=== PATIENT | female | born 1980 | race African-American/Black ===

== ENCOUNTER 2016-04-09 14:25 | Emergency (ER) | payer SELFPAY ==
[2016-04-09] MEDS ORDERED: Lidocaine Viscous Sol 2% 15 ml UD Cup ONE (15:05)
[2016-04-09] MEDS ORDERED: Mag-Al Plus 1200 MG/1200 MG/120 MG/30 ML UDCUP ONE (15:05)
[2016-04-09 15:17] LABS: Bilirubin Negative (Negative); Blood, Urine Moderate (Negative); Glucose, Urine (Dipstick) Negative (Negative); Ketone, Urine Negative (Negative); Nitrite Negative (Negative); Protein, Urine (Dipstick) Negative (Neg-Trace)
[2016-04-09 15:19] LABS: Bacteria/HPF 1+ HPF (None Seen); WBC/HPF 0-3 HPF (0-3)
--- NOTE | 2016-04-09 15:43 | ERRECORD ---
[facility] EMERGENCY RECORD HPI NAUSEA/VOMITING/DIARRHEA (15:22 JL) CHIEF COMPLAINT: Patient presents for evaluation of Pt with diarrhea for a few days >1 week ago. Then 8 days ago developed LUQ abd pain and vomitting. Multiple times a day, food and bile. Tolerated liquids but not food. Improved 2 days ago but still vomitting 2-3x daily bile and continued LUQ pain that is worse with eating. Few stools but did have a BM after an enema 2 days ago. Pt had same symptoms a year ago that lasted 2 weeks and went away when treated for ulcers. Pt does report she ate some spicy foods prior to this starting. HISTORIAN: History provided by patient. LOCATION FEMALE: Symptoms are localized, most severe in the left upper quadrant. QUALITY: Pain is dull in nature. TIME COURSE: Patient unable to describe onset of symptoms, There has been no change in the patient's symptoms over time, are constant. ASSOCIATED WITH FEMALE: No associated chills, Associated with constipation, No associated fever, No associated hematemesis, Associated with nausea, No associated inability to tolerate oral intake, No associated urinary tract infection signs or symptoms, Associated with vomiting, pt just finished her period today. EXACERBATED BY: Patient's condition exacerbated by food. RELIEVED BY: Patient's condition relieved by nothing. ROS (15:29 JL) CONSTITUTIONAL: Historian denies chills, denies fever. ENT: Historian denies rhinorrhea, denies sore throat. CARDIOVASCULAR: Historian denies chest pain. RESPIRATORY: Historian denies cough, denies shortness of breath, denies sputum. GI: Historian reports abdominal pain, reports constipation, denies hematemesis, denies hematochezia, denies melena, reports nausea, reports vomiting. GENITOURINARY FEMALE: Historian denies dysuria, denies frequency, denies hematuria. MUSCULOSKELETAL: Historian denies arthralgias, denies myalgias. mild left side pain over area of LUQ pain. SKIN: Historian denies rash, denies skin changes. NEUROLOGIC: Historian denies dizziness, denies headache, denies paralysis, denies paresthesias, denies sensory changes. PAST MEDICAL HISTORY MEDICAL HISTORY: No past medical history, Flu vaccine not up to date, Tetanus immunization up to date, Pneumococcal vaccine not up to date. (14:39 LHAL) FEMALE SURGICAL HISTORY: D&C, Surgical history of orthopedic surgery, HAND SURGERY. (14:39 LHAL) PSYCHIATRIC HISTORY: No previous psychiatric history. (14:39 LHAL) &a-1R&a+25V*p+0X*i0940M*c202B*c15G*c2P*p-0X&a-25V&a+1R Name: Jenni Galeano : 1980 F36 MedRec: [id number] AcctNum: [id number] Prepared: SatApr 09, 2016 15:45 by Interface Page [address] [facility] EMERGENCY RECORD SOCIAL HISTORY: Patient drinks socially, Patient currently uses drugs, abuses marijuana, Patient currently uses tobacco, smokes cigarettes. (14:39 LHAL) NOTES: Nursing records reviewed, Agree with nursing records. (15:31 JLOY) KNOWN ALLERGIES NKDA CURRENT MEDICATIONS (14:37 LHAL) None VITAL SIGNS (14:27 LHAL) VITAL SIGNS: BP: 151/88 (Sitting), Pulse: 87 (Regular), Resp: 16 (Non-Labored), Temp: 99.4 (Oral), Pain: 8 (Burning), O2 sat: 100 on Room Air, Time: 04/09/2016 14:27. PHYSICAL EXAM (15:30 JLOY) CONSTITUTIONAL: Vital signs reviewed, Patient appears non toxic, Patient alert and oriented to person, place and time. EYES: Eye exam included findings of eyelids normal to inspection, Pupils equally round and reactive to light, Conjunctiva normal. ENT: Pharynx exam normal, Uvula exam normal, Tonsil exam normal, Mouth exam normal, mucous membranes moist. NECK: Neck exam included findings of normal range of motion, Trachea midline, no jugular venous distention, no cervical adenopathy. RESPIRATORY CHEST: Respiratory exam included findings of no respiratory distress, Breath sounds clear, No wheezing, No rales, No rhonchi, Chest exam included findings of chest movement symmetrical. CARDIOVASCULAR: Cardiovascular exam included findings of heart rate regular rate and rhythm, Heart sounds normal. ABDOMEN FEMALE: Abdominal exam included findings of abdomen tender, to the epigastric region, to the left upper quadrant, mild intensity, Bowel sounds normal, Liver normal, Spleen normal, no peritoneal signs, no rigidity, no guarding, no rebound. BACK: Back exam included findings of normal inspection, range of motion normal, no costovertebral angle tenderness. UPPER EXTREMITY: Upper extremity exam included findings of inspection normal, Radial pulse normal, no cyanosis, no clubbing, no edema. LOWER EXTREMITY: Lower extremity exam included findings of inspection normal, no edema, no calf tenderness. NEURO: [place] coma scale 15, Neuro exam findings include patient oriented to person, place and time, Speech normal. SKIN: Skin exam included findings of skin warm, dry, and normal in color, no rash. PSYCHIATRIC: Normal affect. &a-1R&a+25V*p+0X*m6527B*c202B*c15G*c2P*p-0X&a-25V&a+1R Name: Jenni Galeano : 1980 F36 MedRec: [id number] AcctNum: [id number] Prepared: SatApr 09, 2016 15:45 by Interface Page [address] [facility] EMERGENCY RECORD MEDICATION ADMINISTRATION SUMMARY Drug Name: GI COCKTAIL - WHITE, Dose Ordered: 40 mL, Route: Oral, Status: Given, Time: 15:03 04/09/2016, Drug Name: Protonix oral, Dose Ordered: 40 mg, Route: Oral, Status: Given, Time: 15:04/09/2016, Detailed record available in Medication Service section. DOCTOR NOTES (15:32 JL) RE-EVALUATION: The patient's condition has improved, Pt reports her stomach feels 'a lot better'. PROBLEM LIST No recorded problems DIAGNOSIS (15:33 JL) FINAL: PRIMARY: Abdominal Pain, ADDITIONAL: Nausea with vomiting. PRESCRIPTION (14:59 JL) omeprazole: CAPSULE,DELAYED RELEASE (ENTERIC COATED) : 20 mg : ORAL : Quantity: 20 Unit: mg Route: ORAL Schedule: once a day Dispense: 14 May substitute. Refills: No Refills . NOTES: No Refills. DISPOSITION PATIENT: Disposition Type: Discharge, Disposition: *Discharge Home. (15:33 JL) Patient left the department. (15:43 [facility]) Mchugh: BUD=MD Aj, Zen LHAL=ANTONIETA Aguilar, Michelle &a-1R&a+25V*p+0X*h3954H*c202B*c15G*c2P*p-0X&a-25V&a+1R Name: Jenni Galeano : 1980 F36 MedRec: [id number] AcctNum: [id number] Prepared: SatApr 09, 2016 15:45 by Interface Page 3 of 3 pMD MTDD
--- NOTE | 2016-04-09 15:46 | PICIS ---
[facility] EMERGENCY RECORD TRIAGE (14:37 LHAL) PATIENT: NAME: Jenni Galeano, AGE: 36, GENDER: female, : Sat1980, TIME OF GREET: SatApr 09, 2016 14:25, PREFERRED LANGUAGE: Kosovan, ETHNICITY: Not or , ECODE BILLING MAP: [facility], SSN: [id number], Zip Code: [address], KG WEIGHT: 59.42, PHONE: , , , PERSON ID: [id number], PCP: NONE. (14:37 LHAL) TRIAGE NOTES: VOMIITNG X 2 WKS, SEEN IN [facility] LAST WK DIAG WITH GASTROENTERITIS, HAS HAD CHILLS AND MUCOUS IN THROAT. (14:37 LHAL) COMPLAINT: VOMITING. (14:37 LHAL) ADMISSION: URGENCY: 4 Non Urgent, ADMISSION SOURCE: Home, TRANSPORT: CAR, BED: ER -03. (14:37 LHAL) ASSESSMENT: Assessment: VOMITING X 2 WKS, C/O LEFT SIDE OF ABD HURTS "BURNING", DIAG WITH GASTROENTERITIS LAST WK, Symptoms began 2 WKS AGO. (14:39 LHAL) PAIN: Patient complains of pain described as, burning, on a scale 0-10 patient rates pain as 8, Location LEFT SIDE OF ABD, Pain is intermittent, No aggravating factors, No relieving factors. (14:39 LHAL) IMMUNIZATIONS: Flu vaccine not up to date, Tetanus not up to date, Pneumococcal vaccine not up to date, Notes: TOOK HER LAST ZOFRAN THIS AM. (14:39 LHAL) SIRS SCORING: Heart Rate 55-109 (0), Temp range 96.8-101.1 (0), respiratory rate 12-24 (0), Mental Status altered: no (0), Infection or Suspected Infection: No. (14:39 LHAL) TRIAGE SCREENING: Patient denies suicidal ideation, Patient denies presence of domestic violence. (14:39 LHAL) LMP: Last menstrual period: 03/25/16. (14:39 LHAL) PROVIDERS: TRIAGE NURSE: Michelle Aguilar RN. (14:37 LHAL) VITAL SIGNS: BP 151/88, (Sitting), Pulse 87, (Regular), Resp 16, (Non-Labored), Temp 99.4, (Oral), Pain 8, (Burning), O2 Sat 100, on Room Air, Time 04/09/2016 14:27. (14:27 LHAL) KNOWN ALLERGIES NKDA CURRENT MEDICATIONS (14:37 LHAL) None VITAL SIGNS (14:27 LHAL) VITAL SIGNS: BP: 151/88 (Sitting), Pulse: 87 (Regular), Resp: 16 (Non-Labored), Temp: 99.4 (Oral), Pain: 8 (Burning), O2 sat: 100 on Room Air, Time: 04/09/2016 14:27. NURSING ASSESSMENT: FOCUSED (14:37 LHAL) CONSTITUTIONAL: Patient arrives ambulatory, Gait steady, History obtained from patient, Patient appears, uncomfortable, Patient cooperative, Patient alert, Oriented to person, place and &a-1R&a+25V*p+0X*b6005O*c202B*c15G*c2P*p-0X&a-25V&a+1R Name: Jenni Galeano : 1980 F36 MedRec: [id number] AcctNum: [id number] Prepared: SatApr 09, 2016 15:50 by Interface Page 1 of 7 pMD [facility] EMERGENCY RECORD time, Skin warm, Skin dry, Skin normal in color, Mucous membranes pink, Mucous membranes moist, Patient is well-groomed, Patient complains of VOMITING X 2 WK. PAIN: burning pain, No radiation pain, Onset of pain 2 WKS, intermittent, on a scale 0-10 patient rates pain as 8, STATES SHE WAS CONSTIPATED LAST WEEK, HAD LAST BM SATURDAY "HAD TO PULL IT OUT", Pain exacerbated by nothing, Nothing has been tried to alleviate the pain. EYES: Focused eye assessment finding include pupils equally round and reactive to light, Left pupil 3 mm in size, Right pupil 3 mm in size. NEURO: Focused neuro assessment findings include patient alert, cooperative, No facial droop noted, Speech coherent, no weakness, no numbness, No loss of consciousness. GCS: GCS Total: 15. RESPIRATORY: Focused respiratory assessment findings include breath sounds clear, to the left upper lobe, to the right upper lobe, to bilateral upper lobes, to the right middle lobe, to the left lower lobe, to the right lower lobe, to bilateral lower lobes. ABDOMEN: Focused abdominal assessment findings include abdomen soft, tender, Constipation present, no diarrhea, Nausea present, Vomiting, Number of times: X 2 TODAY, Last bowel movement: SAT, Notes: STATES VOMITED GREEN BILE WHEN SHE WOKE THIS AM, THEN 2ND TIME WAS PHLEGM, STATES SHE CAN FEEL PHLEGM IN THROAT IN AM, ONLY VOMITS IN AM AND PM. GENITOURINARY FEMALE: Focused genitourinary assessment not applicable. MUSCULOSKELETAL: Focused musculoskeletal assessment findings include normal range of motion. LACERATION: Focused laceration assessment not applicable. SAFETY: Side rails up, Cart/Stretcher in lowest position, Family at bedside, Call light within reach, Hospital ID band on. NURSING PROCEDURE: DISCHARGE NOTE (15:39 LHAL) DISCHARGE: Patient discharged to home, ambulating without assistance, driving self, accompanied by other family member, Summary of Care printed/ provided, Patient requested and was provided an electronic copy of Discharge Instructions, Transition record given to patient, Discharge instructions given to patient, Simple or moderate discharge teaching performed, by Rasta AGUILAR RN, Prescriptions given and instructions on side effects given, Name of prescription(s) given: OMEPRAZOLE, Medication reconciliation form given, and reviewed with patient, Above person(s) verbalized understanding of discharge instructions and follow-up care, Notes: DC HOME STABLE PAIN FREE, NO VOMITING WHILE HERE, SKIN PINK W/D, NORMAL EVEN RESP, AMBULATES STEADY GAIT. BELONGINGS: Belongings and valuables with patient upon arrival to the Emergency Department include:. NURSING PROCEDURE: NURSE NOTES &a-1R&a+25V*p+0X*r9455H*c202B*c15G*c2P*p-0X&a-25V&a+1R Name: Jenni Galeano : 1980 F36 MedRec: [id number] AcctNum: [id number] Prepared: SatApr 09, 2016 15:50 by Interface Page 2 of 7 pMD [facility] EMERGENCY RECORD NURSES NOTES: Patient examined by physician. (14:45 LHAL) Patient in no apparent distress, Warm blanket given to patient. (15:12 LHAL) NURSING PROCEDURE: URINE COLLECTION (15:08 LHAL) PATIENT IDENTIFIER: Patient actively involved in identification process, Patient's identity verified by patient stating name, Patient's identity verified by patient stating date, Patient's identity verified by hospital ID nickolas, Patient's identity verified by family member. URINE COLLECTION FEMALE: Urine collection indicated for ABD PAIN, VOMITING, Urine collected by mid-stream clean catch, Output amount (mL) 100, urine yellow in color, and clear, Specimen labeled in the presence of the patient and sent to lab. SAFETY: Side rails up, Cart/Stretcher in lowest position, Family at bedside, Call light within reach, Hospital ID band on. ORDER DETAILS Order Name: Test, Urine (BHCG), Status: Active, Time: 14:59 04/09/2016, User: BUD, - Ordered for: MD Rocha Joshua, - Entered by: MD Rocha Joshua - [facility] Apr 09, 2016 14:59, - Quantity: 1, Order Name: Urinalysis with Microscopic, Status: Active, Time: 14:59 04/09/2016, User: BUD, - Ordered for: MD Rocha Joshua, - Entered by: MD Rocha Joshua - [facility] Apr 09, 2016 14:59, - Quantity: 1. MEDICATION ADMINISTRATION SUMMARY Drug Name: GI COCKTAIL - WHITE, Dose Ordered: 40 mL, Route: Oral, Status: Given, Time: 15:03 04/09/2016, Drug Name: Protonix oral, Dose Ordered: 40 mg, Route: Oral, Status: Given, Time: 15:03 04/09/2016, Detailed record available in Medication Service section. MEDICATION SERVICE GI COCKTAIL - WHITE: Order: GI COCKTAIL - WHITE - Dose: 40 mL : Oral Lidocaine Viscous (lidocaine HCl) [10 mL] MAG-AL (magnesium hydroxide/aluminum hydroxide) [30 mL] Ordered by: Zen Rocha MD Entered by: Zen Rocha MD SatApr 09, 2016 14:58 Documented as given by: Michelle Aguilar RN SatApr 09, 2016 15:03 Patient, Medication, Dose, Route and Time verified prior to administration. Amount given: 40 ML, Site: Medication administered P.O., Correct patient, time, route, dose and medication confirmed prior to &a-1R&a+25V*p+0X*m4705S*c202B*c15G*c2P*p-0X&a-25V&a+1R Name: Jenni Galeano : 1980 F36 MedRec: [id number] AcctNum: [id number] Prepared: SatApr 09, 2016 15:50 by Interface Page 3 of 7 pMD [facility] EMERGENCY RECORD administration, Patient advised of actions and side-effects prior to administration, Allergies confirmed and medications reviewed prior to administration, Administered by Rasta AGUILAR RN, Patient in position of comfort, Side rails up, Cart in lowest position, Family at bedside. : Follow Up : No signs or symptoms of allergic reaction noted, Decreased pain, Decreased symptoms. (15:41 LHAL) Protonix oral: Order: Protonix oral (pantoprazole sodium) - Dose: 40 mg : Oral Ordered by: Zen Rocha MD Entered by: Zen Rocha MD SatApr 09, 2016 14:58 Documented as given by: Michelle Aguilar RN SatApr 09, 2016 15:03 Patient, Medication, Dose, Route and Time verified prior to administration. Amount given: 40 MG, Site: Medication administered P.O., Correct patient, time, route, dose and medication confirmed prior to administration, Patient advised of actions and side-effects prior to administration, Allergies confirmed and medications reviewed prior to administration, Administered by Rasta AGUILAR RN, Patient in position of comfort, Side rails up, Cart in lowest position, Family at bedside. : Follow Up : No signs or symptoms of allergic reaction noted, Decreased pain, Decreased symptoms. (15:41 LHAL) HPI NAUSEA/VOMITING/DIARRHEA (15:22 JL) CHIEF COMPLAINT: Patient presents for evaluation of Pt with diarrhea for a few days >1 week ago. Then 8 days ago developed LUQ abd pain and vomitting. Multiple times a day, food and bile. Tolerated liquids but not food. Improved 2 days ago but still vomitting 2-3x daily bile and continued LUQ pain that is worse with eating. Few stools but did have a BM after an enema 2 days ago. Pt had same symptoms a year ago that lasted 2 weeks and went away when treated for ulcers. Pt does report she ate some spicy foods prior to this starting. HISTORIAN: History provided by patient. LOCATION FEMALE: Symptoms are localized, most severe in the left upper quadrant. QUALITY: Pain is dull in nature. TIME COURSE: Patient unable to describe onset of symptoms, There has been no change in the patient's symptoms over time, are constant. ASSOCIATED WITH FEMALE: No associated chills, Associated with constipation, No associated fever, No associated hematemesis, Associated with nausea, No associated inability to tolerate oral intake, No associated urinary tract infection signs or symptoms, Associated with vomiting, pt just finished her period today. EXACERBATED BY: Patient's condition exacerbated by food. RELIEVED BY: Patient's condition relieved by nothing. ROS (15:29 JLOY) CONSTITUTIONAL: Historian denies chills, denies fever. ENT: Historian denies rhinorrhea, denies sore throat. &a-1R&a+25V*p+0X*q9405X*c202B*c15G*c2P*p-0X&a-25V&a+1R Name: Jenni Galeano : 1980 F36 MedRec: [id number] AcctNum: [id number] Prepared: SatApr 09, 2016 15:50 by Interface Page 4 of 7 pMD [facility] EMERGENCY RECORD CARDIOVASCULAR: Historian denies chest pain. RESPIRATORY: Historian denies cough, denies shortness of breath, denies sputum. GI: Historian reports abdominal pain, reports constipation, denies hematemesis, denies hematochezia, denies melena, reports nausea, reports vomiting. GENITOURINARY FEMALE: Historian denies dysuria, denies frequency, denies hematuria. MUSCULOSKELETAL: Historian denies arthralgias, denies myalgias. mild left side pain over area of LUQ pain. SKIN: Historian denies rash, denies skin changes. NEUROLOGIC: Historian denies dizziness, denies headache, denies paralysis, denies paresthesias, denies sensory changes. PAST MEDICAL HISTORY MEDICAL HISTORY: No past medical history, Flu vaccine not up to date, Tetanus immunization up to date, Pneumococcal vaccine not up to date. (14:39 LHAL) FEMALE SURGICAL HISTORY: D&C, Surgical history of orthopedic surgery, HAND SURGERY. (14:39 LHAL) PSYCHIATRIC HISTORY: No previous psychiatric history. (14:39 LHAL) SOCIAL HISTORY: Patient drinks socially, Patient currently uses drugs, abuses marijuana, Patient currently uses tobacco, smokes cigarettes. (14:39 LHAL) NOTES: Nursing records reviewed, Agree with nursing records. (15:31 JLOY) PHYSICAL EXAM (15:30 JLOY) CONSTITUTIONAL: Vital signs reviewed, Patient appears non toxic, Patient alert and oriented to person, place and time. EYES: Eye exam included findings of eyelids normal to inspection, Pupils equally round and reactive to light, Conjunctiva normal. ENT: Pharynx exam normal, Uvula exam normal, Tonsil exam normal, Mouth exam normal, mucous membranes moist. NECK: Neck exam included findings of normal range of motion, Trachea midline, no jugular venous distention, no cervical adenopathy. RESPIRATORY CHEST: Respiratory exam included findings of no respiratory distress, Breath sounds clear, No wheezing, No rales, No rhonchi, Chest exam included findings of chest movement symmetrical. CARDIOVASCULAR: Cardiovascular exam included findings of heart rate regular rate and rhythm, Heart sounds normal. ABDOMEN FEMALE: Abdominal exam included findings of abdomen tender, to the epigastric region, to the left upper quadrant, mild intensity, Bowel sounds normal, Liver normal, Spleen normal, no peritoneal signs, no rigidity, no guarding, no rebound. BACK: Back exam included findings of normal inspection, range of motion normal, no costovertebral angle tenderness. &a-1R&a+25V*p+0X*r2244N*c202B*c15G*c2P*p-0X&a-25V&a+1R Name: Jenni Galeano : 1980 F36 MedRec: [id number] AcctNum: [id number] Prepared: SatApr 09, 2016 15:50 by Interface Page 5 of 7 D [facility] EMERGENCY RECORD UPPER EXTREMITY: Upper extremity exam included findings of inspection normal, Radial pulse normal, no cyanosis, no clubbing, no edema. LOWER EXTREMITY: Lower extremity exam included findings of inspection normal, no edema, no calf tenderness. NEURO: [place] coma scale 15, Neuro exam findings include patient oriented to person, place and time, Speech normal. SKIN: Skin exam included findings of skin warm, dry, and normal in color, no rash. PSYCHIATRIC: Normal affect. EVENTS TRANSFER: Triage to Emergency Emergency Room -03. (SatApr 09, 2016 14:37 LHAL) Removed from Emergency Emergency Room -03. (15:43 [facility]) DOCTOR NOTES (15:32 JLOY) RE-EVALUATION: The patient's condition has improved, Pt reports her stomach feels 'a lot better'. PROBLEM LIST No recorded problems DIAGNOSIS (15:33 JLOY) FINAL: PRIMARY: Abdominal Pain, ADDITIONAL: Nausea with vomiting. DISPOSITION PATIENT: Disposition Type: Discharge, Disposition: *Discharge Home. (15:33 JLOY) Patient left the department. (15:43 LHAL) INSTRUCTION (15:33 JLOY) DISCHARGE: GASTRITIS VS. ULCER. FOLLOWUP: Follow up with Primary Care Physician in 7-10 days. PRESCRIPTION (14:59 JLOY) omeprazole: CAPSULE,DELAYED RELEASE (ENTERIC COATED) : 20 mg : ORAL : Quantity: 20 Unit: mg Route: ORAL Schedule: once a day Dispense: 14 May substitute. Refills: No Refills . NOTES: No Refills. IMAGING (15:42 [facility]) *DISCHARGE INSTRUCTIONS RECEIPT: Image captured from scanner. *SUPPLY CHARGE SHEET: Image captured from scanner. ADMIN DIGITAL SIGNATURE: MD Aj, Zen. (15:33 [facility]) ANTONIETA Aguilar, Michelle. (15:42 [facility]) &a-1R&a+25V*p+0X*w7571M*c202B*c15G*c2P*p-0X&a-25V&a+1R Name: Jenni Galeano : 1980 F36 MedRec: [id number] AcctNum: [id number] Prepared: SatApr 09, 2016 15:50 by Interface Page 6 of 7 pMD [facility] EMERGENCY RECORD RESULTS (15:22 [facility]) LABORATORY: Urinalysis with Microscopic Collection DT: SatApr 09, 2016 15:11, Color Yellow , Range (Yellow), Clarity Hazy , Range (Clear), Specific [place], Urine 1.025 , Range (1.005-1.030), pH, Urine 7.0 , Range (5.0-9.0), *Leukocyte Trace - H , Range (Negative), Nitrite Negative , Range (Negative), Protein, Urine (Dipstick) Negative mg/dL, Range (Neg-Trace), Glucose, Urine (Dipstick) Negative mg/dL, Range (Negative), Ketone, Urine Negative mg/dL, Range (Negative), Urobilinogen 1.0 mg/dL, Range (0.2-1.0), Bilirubin Negative , Range (Negative), *Blood, Urine Moderate - H , Range (Negative), *RBC/HPF 7-10 - H HPF, Range (0-3), WBC/HPF 0-3 HPF, Range (0-3), *Squamous Epithelial 11-20 - H HPF, Range (0-3), *Bacteria/HPF 1+ - H HPF, Range (None Seen). Test, Urine (BHCG) Collection DT: SatApr 09, 2016 15:11, Test - Urine (BHCG) NEGATIVE , Range (NEGATIVE), Method of sensitivity- Indeterminant: results should be repeated, after 48 hours. Positive: results may be detected as early as 4-5 days before a first missed menses. Elimination of BHCG-, Elimination following first trimester D&C: 29-44 Days , Elimination following term : 8-24 Days , Specific [place] 1.025 , Range (1.002-1.036), A dilute urine specimen may, not contain loan servicing representative levels of hCG. If is still, suspected, a first morning urine specimen OR a random blood specimen should, be obtained from the patient 48-72 hours later and re-tested. , . Mchugh: BUD=MD Aj, Zen GARCIA=Jeff RN, Michelle &a-1R&a+25V*p+0X*y4070Y*c202B*c15G*c2P*p-0X&a-25V&a+1R Name: Jenni Galeano : 1980 F36 MedRec: [id number] AcctNum: [id number] Prepared: SatApr 09, 2016 15:50 by Interface Page 7 of 7 pMD MTDD
== END 2016-04-09 15:38 | disposition home or self-care (01) ==
LOC: NAV ERS 14:25
DX: R10.12 Left upper quadrant pain (principal); R10.13 Epigastric pain; R11.2 Nausea with vomiting, unspecified; F17.210 Nicotine dependence, cigarettes, uncomplicated
CPT/HCPCS: 81001; 81025; 99284